=== PATIENT | female | born 1960 | race Caucasian/White ===

== ENCOUNTER → 2020-06-23 | Outpatient (CLI) | payer OTHER | LOC: CT 09:09 | DX: R63.4 Abnormal weight loss (principal); J43.9 Emphysema, unspecified | CPT/HCPCS: 71260; Q9967 ==

== ENCOUNTER → 2020-11-24 | Outpatient (CLI) | payer OTHER | LOC: HEART 5 09:52 | DX: R06.02 Shortness of breath (principal) | CPT/HCPCS: 94060; 94729 ==

== ENCOUNTER → 2020-12-13 | Outpatient (CLI) | payer OTHER | LOC: KOH-I 09:13 | DX: R05.3 Chronic cough (principal); R91.8 Other nonspecific abnormal finding of lung field | CPT/HCPCS: 71046 ==

== ENCOUNTER → 2021-03-06 | Outpatient (CLI) | payer OTHER | LOC: CT 03-05 14:30 | DX: R93.89 Abnormal findings on diagnostic imaging of other specified body structures (principal); I77.819 Aortic ectasia, unspecified site; J98.11 Atelectasis | CPT/HCPCS: 36415; 71275; 82565; Q9967 ==

== ENCOUNTER → 2021-10-04 | Outpatient (CLI) | payer OTHER | LOC: EXRD 09:30 | DX: M81.0 Age-related osteoporosis without current pathological fracture (principal) | CPT/HCPCS: 77080 ==